=== PATIENT | female | born 1970 | race Caucasian/White ===

== ENCOUNTER 2021-07-10 19:26 | Emergency (ER) | payer SELFPAY | END 2021-07-10 19:44 | disposition left against medical advice (07) | LOC: ED 19:26 | DX: Z00.00 Encounter for general adult medical examination without abnormal findings (principal); Z53.21 Procedure and treatment not carried out due to patient leaving prior to being seen by health care provider ==

== ENCOUNTER 2021-07-26 20:32 | Emergency (ER) | payer BC ==
[2021-07-27] MEDS ORDERED: cephALEXin 500 MG CAP PO ONE (01:07)
[2021-07-27] MEDS ORDERED: HYDROcodone/ACETAMINOPHEN 5-325 MG TAB PO ONE ×2 (01:07→02:36)
[2021-07-27] MEDS ORDERED: LIDOCAINE (1%) 10 MG/1 ML VIAL 20 ML MDV INFILTRATI ONE (01:07)
[2021-07-27] MEDS ORDERED: TETANUS,DIPH,PERTUSS(ACELL) VACCINE 0.5 ML SYRINGE IM ONE (01:07)
--- NOTE | 2021-07-27 02:01 | Emergency Department Report ---
ED General Adult HPI - General Chief complaint: Wound/Laceration Stated complaint: LT HAND INJURY Time Seen by Provider: 07/27/21 00:45 Source: patient Mode of arrival: Ambulatory Limitations: No Limitations - History of Present Illness Initial comments: Patient is a 51-year-old -[place] female who presents for left ring finger laceration. States she cut it on a metal ball at work. Last tetanus is unknown. There is no numbness no tingling no deformity. No retained pieces. Bleeding was controlled via direct pressure self applied. Patient arrived to ED via POV patient is alert oriented x3 amatory with steady gait she denies numbness tingling or paralysis. Finger pain is 5/10 aching. Severity scale (0 -10): 10 - Related Data Previous Rx's Medication Instructions Recorded Last Taken Type cephALEXin [Keflex] 500 mg PO Q8HR 7 Days #21 cap 07/27/21 Unknown Rx traMADoL [Ultram] 50 mg PO Q6HR PRN #12 tablet 07/27/21 Unknown Rx Allergies Allergy/AdvReac Type Severity Reaction Status Date / Time No Known Allergies Allergy Verified 07/27/21 01:18 ED Review of Systems ROS: Stated complaint: LT HAND INJURY Other details as noted in HPI Constitutional: denies: chills, fever Eyes: denies: eye pain, eye discharge, vision change ENT: denies: ear pain, throat pain Respiratory: denies: cough, shortness of breath, wheezing Cardiovascular: denies: chest pain, palpitations Endocrine: no symptoms reported Gastrointestinal: denies: abdominal pain, nausea, diarrhea Genitourinary: denies: urgency, dysuria, discharge Musculoskeletal: denies: back pain, joint swelling, arthralgia Skin: other (Left ring finger laceration). denies: rash, lesions Neurological: denies: headache, weakness, paresthesias Psychiatric: denies: anxiety, depression ED Past Medical Hx - Medications Home Medications: Home Medications Medication Instructions Recorded Confirmed Last Taken Type cephALEXin [Keflex] 500 mg PO Q8HR 7 Days #21 cap 07/27/21 Unknown Rx traMADoL [Ultram] 50 mg PO Q6HR PRN #12 tablet 07/27/21 Unknown Rx ED Physical Exam - General Limitations: No Limitations General appearance: alert, in no apparent distress - Head Head exam: Present: normocephalic, normal inspection - Eye Eye exam: Present: normal appearance, EOMI Pupils: Present: normal accommodation - ENT ENT exam: Present: mucous membranes moist - Neck Neck exam: Present: normal inspection, full ROM. Absent: tenderness - Respiratory Respiratory exam: Present: normal lung sounds bilaterally. Absent: respiratory distress, wheezes - Cardiovascular Cardiovascular Exam: Present: regular rate, normal rhythm, normal heart sounds. Absent: systolic murmur, diastolic murmur, rubs, gallop - GI/Abdominal GI/Abdominal exam: Present: soft, normal bowel sounds. Absent: distended, tenderness - Rectal Rectal exam: Present: deferred - Extremities Exam Extremities exam: Present: full ROM, normal capillary refill - Expanded Upper Extremity Exam Left Hand Wrist exam: Present: full ROM, laceration (Left ring finger laceration 4 cm no nerve muscle or tendon damage range of motion is intact and unrestricted. TREATING MACHINE OPERATOR is less than 3 seconds bilateral flexion and extension intact via direct confrontation). Absent: tenderness, deformity, crepidus, erythema, nail avulsion, subungual hematoma Neuro motor exam: Present: wrist extension intact, thumb opposition intact, thumb IP flexion intact, thumb adduction intact, fingers 2-5 abduction intact Neurosensory exam: Present: radial nerve intact - Back Exam Back exam: Present: normal inspection, full ROM. Absent: CVA tenderness (R), CVA tenderness (L) - Neurological Exam Neurological exam: Present: alert, oriented X3, CN II-XII intact - Psychiatric Psychiatric exam: Present: normal affect, normal mood - Skin Skin exam: Present: warm, dry, normal color, other (Laceration as above). Absent: rash ED Course Vital Signs 07/26/21 07/26/21 21:00 21:01 Temperature 98.6 F Pulse Rate 64 Respiratory 20 Rate Blood Pressure 124/60 O2 Sat by Pulse 99 Oximetry - Laceration /Wound Repair Left Finger Wound Location: upper extremity (Left ring finger laceration medial side 4 cm there is no nerve muscle or tendon damage range of motion intact and unrestricted distal pulses are intact TREATING MACHINE OPERATOR less than 3 seconds.) Wound Length (cm): 4 Wound's Depth, Shape: superficial Wound Explored: clean Irrigated w/ Saline (ccs): 50 Betadine Prep?: Yes Anesthesia: 1% Lidocaine Volume Anesthetic (ccs): 2 (Digital block achieved) Wound Debrided: minimal Wound Repaired With: sutures Suture Size/Type: 4:0, proline Number of Sutures: 12 (Running) Sterile Dressing Applied?: Yes (Sterile dressing applied edges well approximated all bleeding is controlled) Progress: Left ring finger laceration lateral side 4 cm no nerve muscle or tendon damage. Site cleaned with Betadine solution. Anesthesia with 1% lidocaine via 2 cc digital block is achieved. Wound irrigated with 50 cc sterile saline, wound closed with 4-0 Prolene x12 sutures running. Edges are well approximated all bleeding is controlled. Sterile dressing is placed at this time. CMS remains intact. TREATING MACHINE OPERATOR remains less than 3 seconds bilateral. Patient given wound care instructions verbalized understanding of same. ED Medical Decision Making - Medical Decision Making Left ring finger laceration see procedure note. Patient will follow-up primary care doctor in 2 days for wound check. 7 to 10 days for suture removal. Edges are well approximated all bleeding is controlled patient tolerated procedure with minimal distress. Patient DC'd home in stable condition at this time with prescriptions. Patient given tetanus during this visit. Critical care attestation.: If time is entered above; I have spent that time in minutes in the direct care of this critically ill patient, excluding procedure time. ED Disposition Clinical Impression: Finger laceration Qualifiers: Encounter type: initial encounter Finger: ring finger Damage to nail status: without damage Foreign body presence: without foreign body Laterality: left Qualified Code(s): S61.215A - Laceration without foreign body of left ring finger without damage to nail, initial encounter Disposition: HOME / SELF CARE / HOMELESS Is pt being admited?: No Does the pt Need Aspirin: No Condition: Stable Additional Instructions: Take medications as prescribed, follow-up with your doctor in 2 days for wound check. Return in 7 to 10 days for suture removal. Return to emergency department for symptoms worsen. Prescriptions: cephALEXin [Keflex] 500 mg PO Q8HR 7 Days #21 cap traMADoL [Ultram] 50 mg PO Q6HR PRN #12 tablet PRN Reason: Pain Referrals: ALEXANDRO BROOKE MD [Staff Physician] - 3-5 Days Forms: Work/School Release Form(ED) Time of Disposition: 02:03
[2021-07-27 02:36] VITALS: BP 121/62
== END 2021-07-27 02:40 | disposition home or self-care (01) ==
LOC: ED 20:32
DX: S61.215A Laceration without foreign body of left ring finger without damage to nail, initial encounter (principal); X58.XXXA Exposure to other specified factors, initial encounter; Y93.89 Activity, other specified; Y92.89 Other specified places as the place of occurrence of the external cause; Y99.8 Other external cause status
CPT/HCPCS: 90471; 90715; 99282

== ENCOUNTER 2021-08-02 17:05 | Emergency (ER) | payer BC ==
[2021-08-02 17:41] VITALS: BP 135/72
== END 2021-08-05 08:35 | disposition left against medical advice (07) ==
LOC: ED 17:05
DX: Z00.00 Encounter for general adult medical examination without abnormal findings (principal); Z53.21 Procedure and treatment not carried out due to patient leaving prior to being seen by health care provider